=== PATIENT | born 1995 | race Caucasian/White ===

== ENCOUNTER 2023-02-05 17:17 | Outpatient (REF) | payer OTHER, SELFPAY | END 2023-02-05 17:18 | disposition home or self-care (01) | LOC: HO.10HDLNP 17:17 | PROVIDERS: Visit Provider Internal Medicine Medical Oncology | DX: R07.0 Pain in throat (principal) | CPT/HCPCS: 87070; 87147 ==

== ENCOUNTER 2023-07-25 10:47 | Outpatient (REF) | payer OTHER, SELFPAY ==
[2023-07-25 11:10] LABS: MANUAL DIFF FLAG NO
--- NOTE | 2023-07-25 11:14 | ECG_ITS ---
Test Reason : CHEST PAIN Blood Pressure : / mmHG Vent. Rate : 104 BPM Atrial Rate : 104 BPM P-R Int : 162 ms QRS Dur : 074 ms QT Int : 318 ms P-R-T Axes : 061 023 026 degrees QTc Int : 418 ms Sinus tachycardia Otherwise normal ECG No previous ECGs available Referred By: Bryant Dumont Electronically Signed By:Angel Taylor
[2023-07-25 12:20] LABS: Basophils Absolute Auto 0.1 X10*3/uL; Basophils Percent Auto 0.9 %; Eosinophils Absolute Auto 0.2 X10*3/uL; Eosinophils Percent Auto 2.8 %; Hematocrit 48.1 %; Hemoglobin 16.4 g/dl; Imm Gran Abs Auto 0.04 X10*3/uL (0.00-0.03); Imm Gran Pct Auto 0.5 % (0.0-0.4); Lymphocytes Absolute Auto 2.7 X10*3/uL; Lymphocytes Percent Auto 30.5 %; Mean Corpuscular HGB Conc 34.1 g/dl; Mean Corpuscular Hemoglobin 28.9 pg; Mean Corpuscular Volume 84.7 fL; Mean Platelet Volume 9.8 fL (9.4-12.4); Monocytes Percent Auto 11.5 %; Neutrophils Absolute Auto 4.7 x10*3/uL; Neutrophils Percent Auto 53.8 %; Platelet Count 392 X10*3/uL; Red Blood Count 5.68 X10*6/uL; Red Cell Distribution Width 13.3 % (11.0-16.0); White Blood Count 8.7 X10*3/uL
[2023-07-25 13:17] LABS: Alanine Aminotransferase 26 U/L; Albumin Level 4.4 g/dL; Alkaline Phosphatase 54 U/L; Anion Gap 14; Aspartate Amino Transferase 25 U/L; Bilirubin Total 0.5 mg/dL; Blood Urea Nitrogen 11 mg/dL; Calcium 9.6 mg/dL; Carbon Dioxide 20 mmol/L; Chloride 106 mmol/L; Estimated Glomerular Filt Rate > 60; Glucose Random 86 mg/dL; Potassium 4.1 mmol/L; Sodium 136 mmol/L; Total Protein 8.4 g/dL
[2023-07-25 13:19] LABS: Free T4 (Free Thyroxine) 0.98 ng/dL; Thyroid Stimulating Hormone 1.07 uIU/mL
== END 2023-07-25 10:48 | disposition home or self-care (01) ==
LOC: HO.LAB 10:47
PROVIDERS: PCP Internal Medicine Medical Oncology; Visit Provider Internal Medicine Medical Oncology
DX: E66.9 Obesity, unspecified (principal); E03.9 Hypothyroidism, unspecified; R07.9 Chest pain, unspecified
CPT/HCPCS: 36415; 80053; 84439; 84443; 85025; 93005

== ENCOUNTER → 2023-07-25 11:14 | Outpatient (BNV) | payer OTHER, SELFPAY | PROVIDERS: PCP Internal Medicine Medical Oncology; Visit Provider Internal Medicine Cardiovascular Disease | DX: R07.9 Chest pain, unspecified (principal); R00.0 Tachycardia, unspecified | CPT/HCPCS: 93010 ==

== ENCOUNTER 2024-08-27 15:55 | Outpatient (REF) | payer OTHER, SELFPAY ==
--- OUTSIDE RECORDS SUMMARY | 2024-08-27 15:58 | XMS_ITS ---
Author Organization Bryant Dumont III, MD Address [address] [place] [address] Care Team Providers Care Biophysics Scientist Name Role Phone Bryant Dumont Primary Care Provider REASON FOR VISIT Testing Social History Sex Assigned At : Social History Observation Description Sex Assigned At Female Encounters Encounter Location Date Provider Diagnosis Bryant Dumont III, MD [address] [place] [address] [place] [address] 07/26/2024 Bryant Dumont Screening for tuberculosis Z11.1 ; Screening for measles Z11.59 ; Screening for rubella Z11.59 ; Immune to mumps Z78.9 and History of measles, mumps, rubella (MMR) vaccination unknown Z78.9 Assessments Encounter Date Diagnosis (ICD Code) Assessment Notes Treat ment Notes Treatment Clinical Notes 07/26/2024 Screening for tuberculosis (ICD-10 - Z11.1) 07/26/2024 Screening for measles (ICD-10 - Z11.59) 07/26/2024 Screening for rubella (ICD-10 - Z11.59) 07/26/2024 Immune to mumps (ICD-10 - Z78.9) 07/26/2024 History of measles, mumps, rubella (MMR) vaccination unknown (ICD-10 - Z78.9) Plan Of Treatment Pending Test Test Name Order Date Mumps Virus IgG Antibody 07/26/2024 Rubella IgG Antibody 07/26/2024 Rubeola IgG (Measles) 07/26/2024 T Spot TB 07/26/2024 Next Appt Details Provider Name:Bryant Dumont, 10/22/2024 03:00:00 PM, [address] [place] [address] [address], [place], [address], Progress Notes * Hussain SOLaDOB:1995 (29 yo F)Acc No.[id number]:07/26/2024 Patient:?Nila SOL :1995???Age:29 Y???Sex:Female Address:[address] [place] [address] [place], [address] Subjective: * Chief Complaints: * ???Testing * Medical History:? * Surgical History:? * Hospitalization/Major Diagno stic Procedure:? * Medications:? Objective: * Vitals:? * Physical Examination:? Assessment: * Assessment: 1.?Screening for tuberculosi s - Z11.1???2.?Screening for measles - Z11.59???3.?Screening for rubella - Z11.59???4.?Immune to mumps - Z78.9???5.?History of measles, mumps, rubella (MMR) vaccination unknown - Z78.9??? Plan: * Treatment: 2.?History of measles, mumps , rubella (MMR) vaccination unknown?LAB: Mumps Virus IgG Antibody ?LAB: Rubella IgG Antibody ?LAB: Rubeola IgG (Measles) * Procedure Codes:? * true * Date:? Generated for Piperi lynette/Esteban/eTransmitting on:?08/27/2024 03:58 PM EDT
--- OUTSIDE RECORDS SUMMARY | 2024-08-27 15:58 | XMS_ITS ---
Author Organization Bryant Dumont III, MD Address [address] [place] [address] Care Team Providers Care Demurrage Agent Name Role Phone Bryant Dumont Primary Care Provider REASON FOR VISIT Form Social History Sex Assigned At : Social History Observation Description Sex Assigned At Female Encounters Encounter Location Date Provider Diagnosis Bryant Dumont III, MD [address] [place] [address] [place] [address] 08/27/2024 Bryant Dumont Screening for tuberculosis Z11.1 Assessments Encounter Date Diagnosis (ICD Code) Assessment Notes Treat ment Notes Treatment Clinical Notes 08/27/2024 Screening for tuberculosis (ICD-10 - Z11.1) Plan Of Treatment Pending Test Test Name Order Date T Spot TB 08/27/2024 Next Appt Details Provider Name:Bryant Dumont, 10/22/2024 03:00:00 PM, [address] [place] [address] [place], [address], Progress Notes * SWETAMitzikeshaaDOB:1995 (29 yo F)Acc No.[id number]:08/27/2024 Patient:?Nila REHMAN :1995???Age:29 Y???Sex:Female Address: [place], [address] Subjective: * Chief Complaints: * ???Form * Medical History:? * Surgical History:? * Hospitalization/Major Diagno stic Procedure:? * Medications:? Objective: * Vitals:? * Physical Examination:? Assessment: * Assessment: 1.?Screening for tuberculosi s - Z11.1??? Plan: * Treatment: * Procedure Codes:? * * Date:?
--- OUTSIDE RECORDS SUMMARY | 2024-08-27 15:59 | XMS_ITS ---
Author Organization Bryant Dumont III, MD Address [address] [place] [address] Care Team Providers Care Bow Maker Production Name Role Phone Bryant Dumont Primary Care Provider Allergies Allergen (clinical drug ingredient) Drug/Non Drug Allergy documented on EMR Reaction Allergy Type Onset Date Status Penicillin Unknown Drug Allergy Active REASON FOR VISIT telehealth Medications Medication SIG (Take, Route, Frequency, Duration) Notes Start Date End Date Status Nicotine Step 1 21 MG/24HR 1 patch to sk in Transdermal Once a day 10/22/2023 Active Social History Tobacco Use: Social History Observation Description Date Details (start date - stop date) Current Smoker NA - NA Sex Assigned At : Social History Observation Description Sex Assigned At Female Tobacco Use/Smoking Question Answer Notes Patient is a current smoker How often do you smoke cigarettes? every day How many cigarettes a day do you smoke? 5 or les s How soon after you wake up d o you smoke your first cigarette? after 60 minutes Are you interested in quitting? Not ready to enzo t Additional Findings: Tobacco Non-User Ex-cigaret te smoker Vital Signs Height 59 in 11/19/2023 Weight 172 lbs 11/19/2023 BMI 34.74 kg/m2 11/19/2023 Encounters Encounter Location Date Provider Diagnosis Bryant Dumont III, MD [address] [place] [address] [address] [place] [place] [address] 11/19/2023 Bryant Dumont Plan Of Treatment Medication Medication Name Sig Start Date Stop Date Notes Nicotine Step 1 21 MG/24HR 1 patch to sk in Transdermal Once a day 10/22/2023 Next Appt Details Provider Name:Bryant Dumont, 10/22/2024 03:00:00 PM, [address] [place] [address] DR, [address], [place], [address], Progress Notes * Cheryl REHMANB:1995 (29 yo F)Acc No.[id number]:11/19/2023 Patient:?Nila REHMAN Provider:?Bryant Dumont MD :1995???Age:28 Y???Sex:Female D ate:11/19/2023 Address:[address] [place], [place] [id number] Subjective: * Chief Complaints: * ???1. Telehealth. * HPI: ???:? recently go nicotine patches a nd rx for strep pharyng. ?Telehealth?Location of provider rendering services:?{...} [address] [place] [address] [address] [facility] [address] ?Location of patient:?address listed in demographics for today's visit ?Patient identification confirmed using:?Name, ?Telehealth method:?Telephone only. Patient not visible to care provider. ?Consent:?Patient verbally consented to treatment, Patient verbally consented to billing insurance company, Patient informed of any privacy concerns related to method of visit ?Total time spent with patient (mins)?15 * ROS:?General/Constitutional:?pain?only normal aches and pains.?Chills?denies.?Fatigue?admits.?Fever?denies.?ENT:?Decreased hearing?denies.?Respiratory:?Cough?denies.?Cardiovascular:?Chest pain with exertion?denies.?Dyspnea on exertion?denies.?Shortness of breath?denies.?Gastrointestinal:?Constipation?denies.?Decreased appetite?denies.?Diarrhea?denies.?Heartburn?denies.?Nausea?denies.?Rectal bleeding?denies.?Vomiting?denies.?Hematology:?bruising?denies.?petechiae?denies.?Swollen glands?none have been noted.?Genitourinary:?Frequent urination?denies.?Musculoskeletal:?Muscle aches?denies.?Painful joints?denies.?Sciatica?denies.?Weakness?denies.?Skin:?Itching?denies.?Rash?denies.?Skin lesion(s)?denies.?Neurologic:?Difficulty speaking?denies.?Dizziness?denies.?Headache?denies.?Low back pain?denies.?Psychiatric:?Depressed mood?denies.? * Medical History:?Penicillin allergy, Near sisghted, Former smoker, [id number]. * Surgical History:? 2017. * Hospitalization/Major Diagno stic Procedure:?Denies Past Hospitalization. * Family History:?Father: bo delgado.?Mother: alive.?1 sister(s) - healthy. 1 daughter(s) - healthy. .? * Social History:?Tobacco Use:?Tobacco Use/Smoking?Patient is a?current smoker ?How often do you smoke cigarettes??every day ?How many cigarettes a day do you smoke??5 or less ?How soon after you wake up do you smoke your first cigarette??after 60 minutes ?Are you interested in quitting??Not ready to quit ?Additional Findings: Tobacco Non-User?Ex-cigarette smoker * Medications:?Taking Nicotine Step 1 21 MG/24HR Patch 24 Hour 1 patch to skin Transdermal Once a day , stop date 12/03/2023, Medication List reviewed and reconciled with the patient * Allergies:?Penicillin. Objective: * Vitals:?Ht: 59, Wt: 172, BMI :34.74, Ht-cm: 149.86, Wt-k.02. Assessment: Plan: * Treatment: * Preventive Medicine:? ??Counseling:?Care goal follow-up plan:?Counseling for abnormal BMI given?Yes ?Above Normal BMI Follow-up?Dietary management education, guidance, and counseling, Dietary needs education, Exercise promotion: strength training, Exercise promotion: stretching, Feeding regime, Giving encouragement to exercise, Lifestyle education regarding diet, Nutrition / feeding management, Nutrition therapy, Prescribed activity/exercise education, Prescribed diet education, Prescribed dietary intake, Special diet education, Weight monitoring , Intervention, Order not done: Medical or Other reason not done * Images: * The named appointment provid er may or may not be the originator of this progress note, and it is not deemed complete until electronically signed by the appointment provider. Sign off status: Pending * Provider:?Bryant Dumont MD Date:?10/2023 Generated for Domonique ojeda/Esteban/Antonieta on:?08/27/2024 03:58 PM EDT History and Physical Notes * HPI (History of Present Illness) Category Sub-Category Detail Notes Telehealth Location of [facility] rendering services:: {...} [address] [place] [address] Drive [address] [place] [id number] Location of patient:: address listed in demographics for today's visit Patient identification confirmed using:: Name, Telehealth method:: Telephone only. Gisel ent not visible to care provider. Consent:: Patient verbally c onsented to treatment, Patient verbally consented to billing insurance company, Patient informed of any privacy concerns related to method of visit Total time spent with patient (mins): 15
[2024-08-30 17:03] LABS: TS Negative Control Passed; TS Panel A 0; TS Panel B 3; TS Positive Control Passed; TSpotTB Negative (Negative)
== END 2024-08-27 15:56 | disposition home or self-care (01) ==
LOC: HO.LAB 15:55
PROVIDERS: PCP Internal Medicine Medical Oncology; Visit Provider Internal Medicine Medical Oncology
DX: Z11.1 Encounter for screening for respiratory tuberculosis (principal)
CPT/HCPCS: 36415; 86481